=== PATIENT | female | born 1985 | race Caucasian/White ===

== ENCOUNTER 2023-02-23 10:37 | Outpatient (REF) | payer MEDICAID, SELFPAY ==
[2023-02-23 15:59] LABS: HCT 46.3 % (36.0-46.0); HGB 14.8 g/dL (11.2-15.7); MCH 25.6 pg (27.0-33.0); MCV 80 fL (80-95); Platelet Count 428 10^3/uL (130-400); RBC 5.78 10^6/uL (3.93-5.22); RDW 13.5 % (11.7-14.6); RDW-SD 38.5 fL
[2023-02-23 16:01] LABS: Bilirubin Negative (Negative); Blood Negative (Negative); Clarity Clear (Clear); Glucose Negative (Negative); Ketones Negative (Negative); Leukocyte Esterase Negative (Negative); Nitrite Negative (Negative); Urobilinogen 0.2 mg/dL (Up to 0.2)
[2023-02-23 16:23] LABS: Bacteria Moderate HPF (Negative); C & S Indicated? No/Sq. Contamination; Casts Negative LPF (Negative); Crystals Negative HPF (Negative); Epithelial Cells Many HPF (Negative); Mucus Trace (Negative); RBC 0-2 HPF (0-2); WBC 0-2 HPF (0-5)
[2023-02-23 16:28] LABS: ALT 31 U/L (14-59); AST 18 U/L (15-37); Albumin 3.7 g/dL (3.4-5.0); Alkaline Phosphatase 75 U/L (46-116); Anion Gap 9.8 mmol/L (3-11); BUN 14 mg/dL (7-18); Bilirubin, Total 0.3 mg/dL (0.2-1.0); CO2 27.2 mmol/L (21.0-32.0); CREATININE 0.8 mg/dL (0.55-1.02); Calcium 9.5 mg/dL (8.5-10.1); Calculated LDL 122 mg/dL (<100); Chloride 101 mmol/L (98-107); Cholesterol 203 mg/dL (<200); Estimated GFR 97.87 (mL/min/1.73m2); Glucose 128 mg/dL (74-106); HDL Cholesterol 38 mg/dL (40-60); Potassium 4.5 mmol/L (3.5-5.1); Sodium 138 mmol/L (136-145); TSH (W/Ref FT4) 2.81 uIU/mL (0.36-3.74); Total Protein 7.6 g/dL (6.4-8.2); Triglyceride 217 mg/dL (<150)
== END 2023-02-23 10:38 | disposition home or self-care (01) ==
LOC: NCHCN 10:37
PROVIDERS: Nurse Practitioner Family; Visit Provider Nurse Practitioner Family
DX: I10 Essential (primary) hypertension (principal); Z13.220 Encounter for screening for lipoid disorders; Z13.29 Encounter for screening for other suspected endocrine disorder; R30.0 Dysuria
CPT/HCPCS: 80053; 80061; 85027; 81003; 81015; 84443

== ENCOUNTER 2023-11-01 11:01 | Emergency (ER) | payer MEDICAID, SELFPAY ==
[2023-11-01 11:15] VITALS: BP 139/76; PULSE 96; RESP 18; TEMP 37.2; O2SAT 98
--- OUTSIDE RECORDS SUMMARY | 2023-11-01 11:38 | XMS_ITS | Continuity of Care Document ---
Author Name Unknown Organization [facility] Address [address] [place] [address] Care Team Providers Care Associate Director Qa Name Role Phone Jen Whitfield Primary Care Physician Encounter [facility] Date(s): 06/16/23 - 06/16/[address] [address] Discharge Disposition: Home or Self Care Attending Physician: Dayanna Head MD Admitting Physician: Dayanna Head MD Allergies, Adverse Reactions, Alerts Substance Reaction Severity Status ADHESIVE TAPE Unknown Active penicillin Unknown Active aspirin Unknown Active sulfamethizole Unknown Active penicillins Unknown Active sulfa drugs Unknown Active Assessment and Plan Future Appointments Immunizations Given and Recorded Vaccine Date Status Refusal Reason SARS-CoV-2 (COVID-19) mRNA-1273 vaccine 01/01/21 R ecorded SARS-CoV-2 (COVID-19) mRNA-1273 vaccine 12/07/20 R ecorded Medications hydrOXYzine hydrochloride 25 mg oral tablet 30 EA, TAKE ONE TABLET BY MOUTH EVERY DAY NEEDED, 0 Refill(s) Start Date: 02/17/23 Status: Ordered Problem List Condition Confirmation Course Effective Dates Status H ealth Status Informant Amenorrhea Confirmed Active Asthma Confirmed Active Autism spectrum disorder Confirmed Active Autistic disorder of childhood onset Confirmed Active Bipolar disorder Confirmed Active History of traumatic brain injury Confirmed Active Hypertensive disorder Confirmed Active Cannabis abuse, daily use Confirmed Active Posttraumatic stress disorder Confirmed Active Schizoaffective disorder Confirmed Active Seizure disorder Confirmed Active Tobacco user Confirmed Active Procedures Procedure Date Related Diagnosis Body Site Status Procedure on ankle 1 Comp leted Procedure on uterus 2 Com pleted 1age 15 yo has bilat steel plates in ankles. 2age ~ 33yo: 3 surgeries to remove bleeding polyp in uterus Results Laboratory List Name Date CBC w/ Diff 06/16/23 Comprehensive Metabolic Panel (CMP) 06/16 Lipase Level 06/16/23 Automated Diff 06/16/23 Test Urine Qual 06/16/23 Urinalysis with Micro if Indicated and C ulture if Indicated 06/16/23 Most recent to oldest [Reference Range]: 1 WBC [5.0-10.0 x10^3/mcL] 9.3 x10^3/mcL (06/16/23 8:25 PM) RBC [4.1-5.3 x10^6/mcL] 5.1 x10^6/mcL (06/16/23 8:25 PM) Neutro Auto [40.0-75.0 %] 68.3 % (06/16/23 8:25 PM) Lymph Auto [20.0-50.0 %] 22.2 % (06/16/23 8:25 PM) Glascock Auto [2.0-15.0 %] 6.4 % (06/16/23 8:25 PM) Basophil Auto [0.0-1.0 %] 0.5 % (06/16/23 8:25 PM) BUN [7-18 mg/dL] 7 mg/dL (06/16/23 8:25 PM) UA Color Yellow (06/16/23 7:36 PM) Glucose Level [74-106 mg/dL] 96 mg/dL (06/16/23 8:25 PM) Potassium Level [3.5-5.1 mmol/L] 4.1 mmo l/L (06/16/23 8:25 PM) MCV [80.0-96.0 fL] 83.0 fL (06/16/23 8:25 PM) UA Urobilinogen Positive *ABN* (06/16/23 7:36 PM) UA Bili [Negative] Negative (06/16/23 7:36 PM) UA Ketones Negative (06/16/23 7:36 PM) AST [15-37 unit/L] 12 unit/L *LOW* (06/16/23 8:25 PM) ALT [14-59 unit/L] 25 unit/L (06/16/23 8:25 PM) MCHC [31.0-35.0 g/dL] 32.4 g/dL (06/16/23 8:25 PM) Sodium Level [136-145 mmol/L] 135 mmol/L *LOW* (06/16/23 8:25 PM) UA Leuk Est Negative (06/16/23 7:36 PM) UA Nitrite Negative (06/16/23 7:36 PM) UA Glucose [Negative] Negative (06/16/23 7:36 PM) Hct [37.0-47.0 %] 42.0 % (06/16/23 8:25 PM) Lipase Level [16-77 unit/L] 26 unit/L 1 (06/16/23 8:25 PM) Calcium Level [8.5-10.1 mg/dL] 9.0 mg/dL (06/16/23 8:25 PM) Albumin Level [3.4-5.0 g/dL] 3.4 g/dL (06/16/23 8:25 PM) Protein Total [6.4-8.2 g/dL] 7.4 g/dL (06/16/23 8:25 PM) UA Protein Negative (06/16/23 7:36 PM) MCH [26.0-32.0 pg] 26.9 pg (06/16/23 8:25 PM) Neutro Absolute 6.3 x10^3/mcL *NA* (06/16/23 8:25 PM) Bilirubin Total [0.2-1.0 mg/dL] 0.3 mg/d L (06/16/23 8:25 PM) Hgb [12.0-16.0 g/dL] 13.6 g/dL (06/16/23 8:25 PM) Alk Phos [46-146 unit/L] 68 unit/L (06/16/23 8:25 PM) UA Blood Negative (06/16/23 7:36 PM) UA Spec Grav 1.020 *NA* (06/16/23 7:36 PM) Platelets [130-450 x10^3/mcL] 305 x10^3/ mcL (06/16/23 8:25 PM) CO2 [21-32 mmol/L] 27 mmol/L (06/16/23 8:25 PM) UA pH 6.5 *NA* (06/16/23 7:36 PM) eGFR Non-AA [>=60] 96 (06/16/23 8:25 PM) eGFR AA [>=60] 96 (06/16/23 8:25 PM) UA Appear Clear (06/16/23 7:36 PM) Chloride Level [98-107 mmol/L] 102 mmol/ L (06/16/23 8:25 PM) RDW-CV [11.5-14.5 %] 13.5 % (06/16/23 8:25 PM) Imm Gran Auto [0.0-0.9 %] 0.6 % (06/16/23 8:25 PM) Creatinine Level [0.55-1.02 mg/dL] 0.81 mg/dL (06/16/23 8:25 PM) Eos, Auto [1.0-6.0 %] 2.0 % (06/16/23 8:25 PM) U hCG Ql Negative (06/16/23 7:36 PM) 1Interpretive Data: Effective 06/30/22, [facility] has switched to a revised Lipase test.Note new ReferenceRange. Vital Signs Most recent to oldest [Reference Range]: 1 Temperature Temporal Artery [36-38 Deg C ] 36.4 Deg C (06/16/23 6:24 PM) Peripheral Pulse Rate [60-100 bpm] 105 b pm *HI* (06/16/23 6:24 PM) Respiratory Rate [12-24 br/min] 22 br/mi n (06/16/23 6:24 PM) Blood Pressure [90-140/60-90 mmHg] 176/1 16mmHg *HI* (06/16/23 6:24 PM) Weight Dosing 153.70 kg (06/16/23 6:39 PM) Weight Estimated 153.70 kg (06/16/23 6:24 PM) Height/Length Dosing 162.000 cm (06/16/23 6:39 PM) Height/Length Estimated 162.000 cm (06/16/23 6:24 PM) Social History Social History Type Response Tobacco Current some day tob acco user Tobacco Use:. 2 ppd per day. Sex Female Physician Emergency department Note * Randolph Kuhn MD: PERFORM Event Display: ED Note Physician Authored Date: MELISSA CHAN :1985 Age:38 years Sex:Female Visit Date:06/16/2023 Primary Care Physician: Jen Whitfield APRN HPI 38-year-old obese female with history of bipolar disorder, daily cannabis use, autism spectrum, TBI, HTN, schizoaffective, PTSD, and tobacco use presents for evaluation of approximately 3 days of flank discomfort with urinary frequency. Denies fevers, chills, vaginal discharge or discomfort, continues to take p.o. well passed urine, flatus, stool at baseline. Patient also notes mild right hip pain/right lateral abdominal wall discomfort by the lateral fold of her pannus, this is worsened by superficial palpation as well as ambulation. No clear history of kidney stones, patient states that shemay have in the distant past, however she has not had kidney stones since being with her significant other. Patient does not appear to think that this pain is consistent with prior kidney stones. No coughor SOB. ?? M/S/F/SocHx notable for: please see HPI; remainder reviewed with patient and in chart.? ROS: Negative constitutional, eye, cardiovascular, pulmonary, GI, , MSK, skin, neurologic, psychiatric, endocrine unless noted in the HPI. ?? Exam HR 105, BP 176/116, RR 22, T 36.4??C, SaO2 97% on room air. Gen:??Pleasant, non-toxic appearing, resting comfortably. HEENT: NC, AT, PEERL, EOMI. Resp: Clear to auscultation bilaterally, normal work of breathing, no accessory muscle usage. Card: Regular rate and rhythm with no murmurs, rubs, or gallops, extremities warm and well perfused.?? GI: Non-tender to palpation throughout all quadrants, non-distended, no rebound or guarding. Right lateral fold of the pannus with mild darkening of the skin C/W acanthosis nigricans, this region hasmild nonfocal tenderness palpation, no rebound tenderness or guarding. : No suprapubic tenderness to palpation. No CVA tenderness percussion bilaterally. MSK: No visible deformities, strength and tone without visually appreciable deficit. Left hip without tenderness palpation or palpable abnormalities. Nonantalgic mildly broad-based gait (baseline). Skin: Normal color with no visible lesions. Neuro: alert and oriented?3, no facial asymmetry, vision and hearing WNL. Psych: Pleasant albeit unusual mood and affect. ?? Labs?? UA - negative nitrate, negative leukocyte Esterase, negative hCG. WBC 9.3, Hb 13.6, sodium 135, potassium 4.1, AST 12, ALT 25, ALP 68, total bilirubin 0.3, lipase 26.? Imaging CT abdomen/pelvis: Unremarkable noncontrast CT abdomen pelvis. No acute findings. ?? MDM Previous chart, nursing note, labs, imaging, and vitals reviewed.?? A:??38-year-old obese female with history of bipolar disorder, daily cannabis use, autism spectrum,TBI, HTN, schizoaffective, PTSD, and tobacco use presents for evaluation of approximately 3 days offlank discomfort with urinary frequency. ?? DDx: UTI, pyelonephritis, kidney stone, , ectopic , acute appendicitis, viral syndrome, biliary disease. ?? Evaluation:?Genitourinary??- initial history suggestive of UTI versus pyelonephritis, urinalysis without evidence of infection. Differential expanded, laboratory studies and imaging ordered. hCG is without evidence of . ?CT abdomen pelvis and CBC, CMP, and lipase without evidence of acute abnormality.?With respect to the reported left hip pain, this appears to localize to soft tissue, inspectionof this area is without evidence of acute pathology. Patient is ambulatory and the left hip exam iswithout features suggestive of septic or crystalline arthropathy. ?Given the above evaluation, the differential is felt to be effectively excluded.? Disposition: Discharged with PCP follow-up recommended. ?? Impression: Abdominal pain. Electronically Signed on 06/16/23 09:19 PM Randolph Kuhn MD Emergency department Discharge instructions * Randolph Kuhn MD: PERFORM Event Display: ED Discharge Information Authored Date: [id number] MELISSA CHAN :1985 Age:38 years Sex:Female Visit Date:06/16/2023 Primary Care Physician: Jen Whitfield APRN Discharge Instructions We would like to thank you for allowing us to assist you with your healthcare needs. The following includes patient education materials and information regarding your injury/illness. ?? You were seen at for evaluation for evaluation of??abdominal pain. At the time of your evaluation the cause of your symptoms is unclear. You may take acetaminophen as directed on the bottle for treatment of pain.??Please read and follow all of the instructions below. ?? Please follow up with your primary care physician??in 3-4 days for repeat evaluation and further care as needed. When calling for follow-up care, please make the office aware that this follow-up is from your recent emergency room visit.? Your care today was limited to identifying and treating emergent medical problems only. Many peoplehave subtle differences in their test results that require follow up with their outpatient physician(s) to correctly determine if this represents a normal variation or concerning abnormality with respect to your specific health.??The care given to you today was limited to identifying and treating emergent medical problems - you need to request a copy of all of your medical records from today's visit and follow up with your outpatient physician(s) to review both today's visit and your overall health. If you have any new symptoms or if you are at all concerned about your health please return immediately to the emergency department. ?? Prescriptions: If you are uninsured or have financial difficulties with filling your prescription(s), you may consider using a free pharmacy discount service such as [employer] ([employer]) or [employer] ([employer]). These services allow you to search for a medication on your phone (or computer) and obtain a coupon that usually has a significant discount from the list guileln at a pharmacy. Your physician does not have a financial relationship with either of these services. You may also wish to speak with your physician to determine if lower cost prescriptions are possible. ?? Abdominal Pain The exact cause of your abdominal pain is not certain. Based upon the testing today you are felt jordy at low risk for discharge. There are no current signs of a life threatening illness or injury. Your condition does not seem serious now; however, sometimes the signs of a serious problem may take more time to appear. For this reason, it is important for you to watch for any new symptoms, problems , or worsening of your condition. Over the next few days, the abdominal pain may come and go, or becontinuous. Other common symptoms can include nausea and vomiting. Sometimes it can be difficult totell if you feel nauseous, you may just feel bad and not associate that feeling with nausea. Constipation, diarrhea, and a fever may go along with the pain. The pain may continue even if treated correctly over the following days. Depending on how things go, sometimes the cause can become clear and may require further or different treatment. Additional evaluations, medications, or tests may be needed. ?? If your symptoms do not worsen but you are still having pain after 12-24 hours, please call your primary care physician to arrange for further evaluation.? Return to the emergency department if any of the following occur: ?Pain gets worse or moves to the right lower abdomen ?New or worsening vomiting or diarrhea ?Swelling of the abdomen ?Unable to pass gas or stool for more than 8 hours ?Fever of 100.4??F (38??C) or higher, or as directed by your healthcare provider. ?Blood in vomit or bowel movements (dark red or black color) ?If you have yellow skin or eyes or if you have dark brown urine. ?Weakness, dizziness ?Chest, arm, back, neck or jaw pain ?Unexpected vaginal bleeding or missed period ?Trouble breathing ?Confusion ?Fainting or loss of consciousness ?Rapid heart rate ?Seizure ?If you are light headed upon standing or passing out.?If you are otherwise concerned about your health. ?? Home Care ?Do not force yourself to eat, especially if having cramps, vomiting, or diarrhea. ?Water is important so you do not get dehydrated. Soup may also be good. Sports drinks may also help, especially if they are not too acidic. Make sure you don't drink sugary drinks as this can make things worse. Take liquids in small amounts.?Caffeine sometimes makes the pain and cramping worse. ?Avoid dairy products if you have vomiting or diarrhea. ?Don't eat large amounts at a time. Wait a few minutes between bites. ?Eat a diet low in fiber (called a low-residue diet). Foods allowed include refined breads, white rice, fruit and vegetable juices without pulp, tender meats. These foods will pass more easily through the intestine. ?Avoid whole-grain foods, whole fruits and vegetables, meats, seeds and nuts, fried or fatty foods, dairy, alcohol and spicy foods until your symptoms go away. ?? Discharge Vitals Temperature??(Temporal Artery) 97.5 ??F (36.4 ??C) Heart Rate??(Peripheral) 105 Respiratory Rate?? 22 Blood Pressure?? 176/116?? Height?? 63.78 in (162.000 cm) Weight??(Estimated) 338.91 lb (153.70 kg) Allergies ADHESIVE TAPE aspirin penicillin penicillins sulfa drugs sulfamethizole What to Do Next Upcoming Scheduled Appointments Monday 1:00 PM EST ?? With: Yamile Bender MD Where: [address], [address] [place] [address] Status: Confirmed You were treated today on an emergency basis; it may be bettencourt to contact your primary care provider to notify them of your visit today. You may have been referred to your regular doctor or a specialist, please follow up as instructed. If your condition worsens or you can't get in to see the doctor, contact the Emergency Department. Medications What When Instructions Next Dose Unchanged hydrOXYzine (hydrOXYzine hydrochloride 25 mg oral tablet) 30 EA, TAKE ONE TABLET BY MOUTH EVERY DAY NEEDED ?? Tests Performed Lab Test Name Test Result Date/Time WBC 9.3 x10^3/mcL 06/16/2023 20:25 EDT RBC 5.1 x10^6/mcL 06/16/2023 20:25 EDT Hgb 13.6 g/dL 06/16/2023 20:25 EDT Hct 42.0 % 06/16/2023 20:25 EDT MCV 83.0 fL 06/16/2023 20:25 EDT MCH 26.9 pg 06/16/2023 20:25 EDT MCHC 32.4 g/dL 06/16/2023 20:25 EDT RDW-CV 13.5 % 06/16/2023 20:25 EDT Platelets 305 x10^3/mcL 06/16/2023 20:25 EDT Neutro Auto 68.3 % 06/16/2023 20:25 EDT Lymph Auto 22.2 % 06/16/2023 20:25 EDT Glascock Auto 6.4 % 06/16/2023 20:25 EDT Eos, Auto 2.0 % 06/16/2023 20:25 EDT Basophil Auto 0.5 % 06/16/2023 20:25 EDT Imm Gran Auto 0.6 % 06/16/2023 20:25 EDT Neutro Absolute 6.3 x10^3/mcL 06/16/2023 20:25 EDT Sodium Level 135 mmol/L 06/16/2023 20:25 EDT Potassium Level 4.1 mmol/L 06/16/2023 20:25 EDT Chloride Level 102 mmol/L 06/16/2023 20:25 EDT CO2 27 mmol/L 06/16/2023 20:25 EDT Alk Phos 68 unit/L 06/16/2023 20:25 EDT AST 12 unit/L 06/16/2023 20:25 EDT ALT 25 unit/L 06/16/2023 20:25 EDT BUN 7 mg/dL 06/16/2023 20:25 EDT Glucose Level 96 mg/dL 06/16/2023 20:25 EDT Creatinine Level 0.81 mg/dL 06/16/2023 20:25 EDT eGFR AA 96 06/16/2023 20:25 EDT eGFR Non-AA 96 06/16/2023 20:25 EDT Calcium Level 9.0 mg/dL 06/16/2023 20:25 EDT Protein Total 7.4 g/dL 06/16/2023 20:25 EDT Albumin Level 3.4 g/dL 06/16/2023 20:25 EDT Bilirubin Total 0.3 mg/dL 06/16/2023 20:25 EDT Lipase Level 26 unit/L 06/16/2023 20:25 EDT U hCG Ql NEGATIVE 06/16/2023 19:36 EDT UA Color YELLOW. 06/16/2023 19:36 EDT UA Appear CLEAR. 06/16/2023 19:36 EDT UA Glucose NEGATIVE 06/16/2023 19:36 EDT UA Bili NEGATIVE 06/16/2023 19:36 EDT UA Ketones NEGATIVE 06/16/2023 19:36 EDT UA Spec Grav 1.020 06/16/2023 19:36 EDT UA Blood NEGATIVE 06/16/2023 19:36 EDT UA pH 6.5 06/16/2023 19:36 EDT UA Protein NEGATIVE 06/16/2023 19:36 EDT UA Urobilinogen 1.0 Uro 06/16/2023 19:36 EDT UA Nitrite NEGATIVE 06/16/2023 19:36 EDT UA Leuk Est NEGATIVE 06/16/2023 19:36 EDT Patient/Steel Manager Signature Patient Name:KAEJESEBONNIEJERAMIE Montalvo I have received this information and my questions have been answered. Patient/Steel Manager Name: Patient/Steel Manager Signature: Relationship to Patient: Witness Name/Signature: Date: Electronically Signed on: 06/16/2023 21:20 EDTSigned by:JERAMY Emergency department Note * Kasey Bolivar: PERFORM Event Display: ED Notes Authored Date: Patient Care team information Care Team Personnel Name: Jen Whitfield MICROPHONE OPERATOR Position: No Access Member Role: Informed Provider Address: Address: [address] [address]- [place] Name: Aneesh Zimmer RN Position: Nurse Member Role: ED Nurse Name: Randolph Kuhn MD Position: Physician Member Role: ED Physician Care Team Related Persons Name: ALEXANDR PRATT Name: GURINDER PRATT Address: [address] [id number]
--- OUTSIDE RECORDS SUMMARY | 2023-11-01 11:38 | XMS_ITS | Continuity of Care Document ---
Author Name Unknown Organization [facility] Address [address] [place] [address] Care Team Providers Care Glass Inserter Name Role Phone Jen Whitfield Primary Care Physician [facility] Date[facility] 09/24/23 - 09/24/[address] [phone] Encounter Diagnosis Anxiety disorder(Discharge Diagnosis) - 09/24/23 Discharge Disposition: Home or Self Care Attending Physician: Dayanna Head MD Admitting Physician: Dayanna Head MD Allergies, Adverse Reactions, Alerts Substance Reaction Severity Status ADHESIVE TAPE Unknown Active penicillin Unknown Active aspirin Unknown Active sulfamethizole Unknown Active penicillins Unknown Active sulfa drugs Unknown Active Immunizations Given and Recorded Vaccine Date Status [...] surgeries to remove bleeding polyp in uterus Vital Signs Most recent to oldest [Reference Range]: 1 Temperature Temporal Artery [36-38 Deg C ] 37 Deg C (09/24/23 1:20 PM) Temperature Temporal Artery (DegF) [97.3 -100 Deg F] 98.6 Deg F (09/24/23 1:20 PM) Peripheral Pulse Rate [60-100 bpm] 105 b pm *HI* (09/24/23 1:10 PM) Respiratory Rate [12-24 br/min] 20 br/mi n (09/24/23 1:10 PM) Blood Pressure [90-140/60-90 mmHg] 171/1 06mmHg *HI* (09/24/23 1:10 PM) Mean Arterial Pressure, Cuff [70-110 mmH g] 128 mmHg *>HHI* (09/24/23 1:10 PM) Weight Estimated 157 kg (09/24/23 1:10 PM) Body Mass Index Estimated 59.82 kg/m2 (09/24/23 1:10 PM) Height/Length Estimated 162 cm (09/24/23 1:10 PM) Social History Social History Type Response Tobacco Current some day tob acco user Tobacco Use:. 2 ppd per day. Sex Female Physician Emergency department Note * Jaydon Brandon MD: PERFORM Event Display: ED Note Physician Authored Date: [id number] MELISSA CHAN :1985 Age:38 years Sex:Female Visit Date:09/24/2023 Primary Care Physician: Jen Whitfield APRN Basic Information Time Seen: Jaydon Brandon MD / 09/24/2023 13:15 Chief Complaint Pt states I just want to talk to someone, I want help finding a therapist, I would never hurt myself... I have [facility] number, but that's causing anxiety because they aren't calling me back... I need a shower, that's probably why I'm feeling this way... History Of Present Illness: Presenting concern is anxiety. ??Patient??lost her??emotional therapist.?? She had a panic attack secondary to realizing??the loss.?? She denies SI or HI.?? She would like to talk to somebody.?? She does not use drugs. Review of Systems: Negative except for knee pain Physical Exam Vitals & Measurements T:??37?C ??(Temporal Artery)?? HR:??105??(Peripheral)?? RR:??20?? BP:??171/106?? SpO2:??96%?? HT:??162??cm?? WT:??157??kg??(Estimated)?? BMI:??59.82?? O2 Therapy:??Room air?? Rational. ??Alert.?? Normal respirations. ??Normal heart sounds. ??Abdomen obese. ??Extremities??without erythema or edema. Medical Decision Making: Complexity is low. ??Management risk are low.?? Data complexity is low.?? [facility] coding 76326. Procedure No Qualifying Data Assessment/Plan 1.??Anxiety disorder??F41.9 Ordered: Discharge Patient, 09/24/23 14:45:00 EST, Home Independently, Constant Indicator ?? Medication Reconciliation Unchanged hydrOXYzine (hydrOXYzine hydrochloride 25 mg oral tablet)30 EA, TAKE ONE TABLET BY MOUTH EVERY DAY NEEDED. Problem List/Past Medical History Ongoing Amenorrhea Asthma Autism spectrum disorder Autistic disorder of childhood onset Bipolar disorder Cannabis abuse, daily use History of traumatic brain injury Hypertensive disorder Morbid obesity Posttraumatic stress disorder Schizoaffective disorder Seizure disorder Tobacco user Historical Type 2 diabetes mellitus Procedure/Surgical History ???Procedure on ankle???Procedure on uterus Allergies ADHESIVE TAPE aspirin penicillin penicillins sulfa drugs sulfamethizole Social History Alcohol Past, 1-2 times per month Electronic Cigarette/Vaping Electronic Cigarette Use: Never. Sexual Other contraceptive use: None. Substance Use Past, Marijuana, 1-2 times per week Tobacco Current some day tobacco user Tobacco Use:. 2 ppd per day. Family History Asthma: Other. Bipolar disorder: Mother. Cardiovascular system disease: Other. DM - Diabetes mellitus: Other. Diabetes mellitus: Mother. Family history of cancer: Other. Electronically Signed on 09/24/23 02:46 PM Jaydon Brandon MD Emergency department Discharge instructions * Jaydon Brandon MD: PERFORM Event Display: ED Discharge Information Authored Date: [id number] MELISSA CHAN :1985 Age:38 years Sex:Female Visit Date:09/24/2023 Primary Care Physician: Jen Whitfield APRN Discharge Instructions We would like to thank you for allowing us to assist you with your healthcare needs. The following includes patient education materials and information regarding your injury/illness. Diagnosis from Today's Visit Anxiety disorder Discharge Vitals Temperature??(Temporal Artery) 98.6 ??F (37 ??C) Heart Rate??(Peripheral) 105 Respiratory Rate?? 20 Blood Pressure?? 171/106?? Height?? 63.78 in (162 cm) Weight??(Estimated) 346.18 lb (157 kg) BMI?? 59.82 Allergies ADHESIVE TAPE aspirin penicillin penicillins sulfa drugs sulfamethizole What to Do Next Instructions from Your Care Team Follow-up with your counselor at [facility]. ?? Jaydon Brandon MD You were treated today on an emergency [...] TABLET BY MOUTH EVERY DAY NEEDED ?? Patient/Certification Officer Signature Patient Name:MELISSA CHAN I have received this information and my questions have been answered. Patient/Certification Officer Name: Patient/Certification Officer Signature: Relationship to Patient: Witness Name/Signature: Date: Electronically Signed on: 09/24/2023 14:45 ESTSigned by:[facility] Emergency department Note * Kasey Bolivar: PERFORM Event Display: ED Notes Authored Date: [id number] * Kasey Bolivar: PERFORM Event Display: ED Notes Authored Date: [id number] Patient Care team information Care Team Personnel Name: Jen Whitfield APRN Position: No Access Member Role: Informed Provider Address: Address: [address] [address]- [place] Name: Aura Lino RN Position: Nurse Member Role: ED Nurse Name: Jaydon Brandon MD Position: Physician Member Role: ED Physician Address: Address: [address] [place] [id number] [place] Care Team Related Persons Name: ALEXANDR PRATT Name: GURINDER PRATT Address: [address] [id number]
--- OUTSIDE RECORDS SUMMARY | 2023-11-01 11:38 | XMS_ITS | Continuity of Care Document ---
Author Name Unknown Organization [facility] Address [address] [place] [address] Care Team Providers Care Bean Picker Name Role Phone Jen Whitfield Primary Care Physician [facility] [id number] Date(s): 04/02/23 - 04/03/23 [facility] [address] [place] [address] Discharge Disposition: Home or Self Care Attending Physician: Randolph Kuhn MD Admitting Physician: Randolph Kuhn MD Allergies, Adverse Reactions, Alerts Substance Reaction Severity Status ADHESIVE TAPE Unknown Active penicillin Unknown Active aspirin Unknown Active sulfamethizole Unknown Active penicillins Unknown Active sulfa drugs Unknown Active Assessment and Plan Future Appointments Functional Status 04/02/23 Family Member Travel History No recent t ravel Recent Travel History No recent travel Other exposure to Infectious Disease Non e Immunizations Given and Recorded Vaccine Date Status [...] Most recent to oldest [Reference Range]: 1 2 Temperature Temporal Artery [36-38 Deg C ] 36.6 Deg C (04/02/23 9:28 PM) Peripheral Pulse Rate [60-100 bpm] 98 bp m (04/03/23 12:43 AM) 126 bpm *HI* (04/02/23 9:28 PM) Respiratory Rate [12-24 br/min] 22 br/mi n (04/03/23 12:43 AM) 30 br/min *HI* (04/02/23 9:28 PM) Blood Pressure [90-140/60-90 mmHg] 162/1 01mmHg *HI* (04/03/23 12:43 AM) 157/119mmHg *HI* (04/02/23 9:28 PM) Weight Dosing 158.00 kg (04/02/23 9:34 PM) Weight Estimated 158.00 kg (04/02/23 9:28 PM) Height/Length Dosing 165.000 cm (04/02/23 9:34 PM) Height/Length Estimated 165.000 cm (04/02/23 9:28 PM) Social History Social History Type Response Tobacco Current some day tob acco user Tobacco Use:. 2 ppd per day. Sex Female Physician Emergency department Note * Randolph Kuhn MD: PERFORM Event Display: ED Note Physician Authored Date: [id number] MELISSA CHAN :1985 Age:38 years Sex:Female Visit Date:04/02/2023 Primary Care Physician: Jen Whitfield APRN HPI 38-year-old morbidly obese female with a history of autism spectrum disorder, bipolar disorder, cannabis use, TBI, HTN, PTSD, and schizoaffective disorder presents for evaluation of left knee pain that began after she increased her daily walking several days ago.??Patient has some discomfort with walking and clicking. Patient has taken ibuprofen and acetaminophen but she cannot remember her last dose. ROS with no recent constitutional symptoms. ?? Exam HR 126, RR 30, BP 157/119, T 36.6??C, SaO2 90% on room air. Gen: Pleasant, nontoxic-appearing, resting comfortably. HEENT: NC, AT, PEERL, EOMI. Resp: Unlabored respirations with a normal work of breathing. Card: Extremities warm and well perfused.?? GI: Non-distended. : Deferred MSK: left knee with full functional range of motion, no tenderness to palpation over the patella, fibular head, or joint line. No MCL or LCL tenderness to palpation, negative Mera and posterior drawer test. No tenderness to palpation on the quadriceps or patellar tendon, both tendons intact on knee extension. No swelling, ecchymosis or effusion. Calf without visible or palpable trauma, muscle compartments soft and non-tender to palpation. Gait - Patient able to ambulate with a mildly antalgic gait. Neuro:??alert and oriented?3, no facial asymmetry, vision and hearing WNL. Heme/Lymph: Deferred Skin: Normal color with no visible lesions (other than noted above). Psych: pleasant, however markedly unusual mood and affect. ?? Imaging XR L Knee:??Asymmetric narrowing of the patellofemoral articulation, possibly secondary to degenerative change. ?? MDM Previous chart, nursing note, and vitals reviewed.?? A: 38-year-old morbidly obese female with a history of autism spectrum disorder, bipolar disorder, cannabis use, TBI, HTN, PTSD, and schizoaffective disorder presents for evaluation of left knee painthat began after she increased her daily walking several days ago. ?? DDx & Evaluation: imaging without evidence of acute, radiographically significant abnormalities. Exam without discernible abnormalities (i.e. no evidence of ligamentous, tendinous, clinically significant meniscal injury, or septic or crystalline arthropathy. Additionally no evidence of bursitis. Suspect overuse injury, recommend NSAIDs for pain control and PCP follow-up. ?? Impression: left knee pain. Electronically Signed on 04/03/23 12:45 AM Randolph Kuhn MD Emergency department Discharge instructions * Randolph Kuhn MD: PERFORM Event Display: ED Discharge Information Authored Date: [id number] MELISSA CHAN :1985 Age:38 years Sex:Female Visit Date:04/02/2023 Primary Care Physician: Jen Whitfield APRN Discharge Instructions We would like to thank you for allowing us to assist you with your healthcare needs. The following includes patient education materials and information regarding your injury/illness. ?? You were seen at [facility] for evaluation of??left knee pain. At time of your evaluation your symptoms are believed to be??due??to mild overuse. You may take ibuprofen and acetaminophen as directed on bottle for treatment of pain.??Please read and follow all of the instructions below. ?? Please follow up with your primary care physician??in 2-3 days for repeat evaluation further care as needed. When calling for [...] a free pharmacy discount service such as [employer] ([employer]) or [employer] ([employer]). These services allow you to search for a medication on your phone (or computer) and obtain a coupon that usually has a significant discount from the list guillen at a pharmacy. Your physician does not have a financial relationship with either of these services. You may also wish to speak with your physician to determine if lower cost prescriptions are possible. ?? High Blood Pressure (Hypertension) When you were in the emergency department you had an abnormally high blood pressure. High blood pressure can be without symptoms. However high blood pressure can lead to many medical problems including kidney disease, strokes, and heart attacks. Your blood pressure may have been elevated due to pain or the stress of being in the emergency department, however half of people with an elevated blood pressure in the emergency department have residential problems with high blood pressure.? Please see your primary care physician in 2-3 days for a repeat check of your blood pressure. This may help prevent many health serious problems in the future.? Please return to the emergency department if you develop any of the following: chest pain, shortness of breath, new or severe headache, changes in vision or hearing, weakness, or if you are otherwiseconcerned about your health. ?? Discharge Vitals Temperature??(Temporal Artery) 97.9 ??F (36.6 ??C) Heart Rate??(Peripheral) 98 Respiratory Rate?? 22 Blood Pressure?? 162/101?? Height?? 64.96 in (165.000 cm) Weight??(Estimated) 348.39 lb (158.00 kg) Allergies ADHESIVE TAPE aspirin penicillin penicillins sulfa drugs sulfamethizole What to Do Next Upcoming Scheduled Appointments Monday 1:00 PM EST ?? You were treated today on an emergency [...] TABLET BY MOUTH EVERY DAY NEEDED ?? Patient/Button Inspector Signature Patient Name:MELISSA CHAN I have received this information and my questions have been answered. Patient/Button Inspector Name: Patient/Button Inspector Signature: Relationship to Patient: Witness Name/Signature: Date: Electronically Signed on: 04/03/2023 00:45 EDTSigned by:JERAMY Emergency department Note * Cecy Webb H: PERFORM Event Display: ED Notes Authored Date: [id number] Patient Care team information Care Team Personnel Name: Jen Whitfield APRN Position: No Access Member Role: Informed Provider Address: Address: [address] [address]- [place] Name: Randolph Kuhn MD Position: Physician Member Role: Admitting Physician Care Team Related Persons Name: SHAISTA BUSTILLOS Name: GURINDER PRATT Address: [address] [phone]
--- NOTE | 2023-11-01 12:14 | NUR.NOTE ---
Nursing Note: Pt left without being seen.
== END 2023-11-01 12:18 ==
LOC: ER 11:36
DX: Z53.21 Procedure and treatment not carried out due to patient leaving prior to being seen by health care provider (principal)

== ENCOUNTER 2023-11-27 13:08 | Outpatient (REF) | payer MEDICAID, SELFPAY ==
[2023-11-27 15:08] LABS: Abs Immature Grans 0.07 10^3/uL (0.0-0.06); Absolute Basophil Count 0.07 10^3/uL (0.0-0.2); Absolute Eosinophil Count 0.22 10^3/uL (0.0-0.7); Absolute Lymphocyte Count 2.55 10^3/uL (1.2-3.4); Absolute Monocyte Count 0.61 10^3/uL (0.1-0.8); Absolute Neutrophil Count 5.54 10^3/uL (1.2-6.7); Basophils % 0.8; Eosinophils % 2.4; HCT 43.1 % (36.0-46.0); HGB 14.1 g/dL (11.2-15.7); Immature Grans % 0.8; Lymphocytes % 28.1; MCH 26.1 pg (27.0-33.0); MCHC 32.7 % (32.0-36.0); MCV 80 fL (80-95); MPV 9.8 fL (8.0-11.0); Monocytes % 6.7; Neutrophils % 61.2; Platelet Count 383 10^3/uL (130-400); RDW 12.9 % (11.7-14.6); RDW-SD 36.8 fL; WBC 9.06 10^3/uL (4.4-10.8)
[2023-11-27 15:40] LABS: ALT 30 U/L (14-59); AST 26 U/L (15-37); Albumin 3.7 g/dL (3.4-5.0); Alkaline Phosphatase 66 U/L (46-116); Anion Gap 10.3 mmol/L (3-11); BUN 13 mg/dL (7-18); Bilirubin, Total 0.3 mg/dL (0.2-1.0); CO2 25.7 mmol/L (21.0-32.0); CREATININE 0.7 mg/dL (0.55-1.02); Calcium 9.4 mg/dL (8.5-10.1); Chloride 103 mmol/L (98-107); Estimated GFR 114.88 (mL/min/1.73m2); Glucose 108 mg/dL (74-106); Sodium 139 mmol/L (136-145); Total Protein 7.9 g/dL (6.4-8.2)
[2023-11-27 15:58] LABS: Hemoglobin A1C 5.8 % (<5.7)
== END 2023-11-27 13:09 | disposition home or self-care (01) ==
LOC: NCHCN 13:08
PROVIDERS: PCP Nurse Practitioner Family; Visit Provider Nurse Practitioner Family
DX: E11.9 Type 2 diabetes mellitus without complications (principal); I10 Essential (primary) hypertension
CPT/HCPCS: 80053; 83036; 85025